=== PATIENT | male | born 1980 | race Caucasian/White ===

== ENCOUNTER 2019-12-03 13:23 | Outpatient (CLI) | payer OTHER, SELFPAY ==
--- NOTE | ~2019-12-03 | CT_ITS ---
EXAMINATION: CT chest high resolution wo nh DATE: 12/03/2019 15:42 INDICATION: Interstitial lung disease. TECHNIQUE: Computed tomography (CT) of the chest was performed without intravenous contrast. The dose -length product was 409.98 mGy-cm. Automated exposure control and iterative reconstruction technique were employed. COMPARISON: Chest dated 12 08/12/2014 FINDINGS: There are calcified pleural plaques on the right, consistent with chronic asbestos exposure . Mildly enlarged AP window lymph node measures 1 cm short axis. No significant pleural or pericardia l effusion. There is extensive bronchiectasis of the lower lobes. There are there are mild interstiti al changes peripherally in the upper lobes. There is bibasilar atelectasis/scarring. No endobronchial lesions. No acute osseous abnormality. IMPRESSION: 1. Severe bilateral lower lobe bronchiectasis. 2: Mild peripheral interstitial changes, possibly chronic interstitial fibrosis. 3: Mildly enlarged mediastinal lymph node, likely reactive. 4: Calcified right pleural plaques, likely from previous asbestos exposure. Reviewed, dictated and finalized at location A. HER EXAMINER IMPRESSION: 1. Severe bilateral lower lobe bronchiectasis. 2: Mild peripheral interstitial changes, possibly chronic interstitial fibrosis . 3: Mildly enlarged mediastinal lymph node, likely reactive. 4: Calcified right pleural plaques, likely from previous asbestos exposure.
--- NOTE | 2019-12-06 22:47 | WPDPFTINT ---
PFT Interpretation PFT Interpretation: DOS: 12/03/2019 REQUESTING: Dr. Mendez REASON FOR TESTING: shortness of breath PULMONARY FUNCTION TESTS Spirometry: FEV1 73%, FVC 67% mildly decreased. FEV1% is normal 82%. There is a 12% increase in FEV1 with bronchodilator. The small airways flows are reduced at 78%. Lung volumes: Mild restriction with decreased TLC 69% predicted. No air trapping. Mild increase in airway resistance Raw 169%. Diffusion: DLCO is 56%, moderately reduced. Flow volume loop: Small overall size with loss of peak at 1 second. IMPRESSION: Mild restriction with a moderate diffusion impairment. This pattern can be seen in interstitial lung disease and pneumonitis. With the decreased small airways pattern, sarcoid may be a consideration as this can produce a restrictive pattern with low DLCO and decreased small airways flows. Heart failure, asbestosis and miliary tuberculosis may also produce this pattern. Clinical correlation is advised. . Heaven Mendez MD
== END 2019-12-03 13:24 | disposition home or self-care (01) ==
LOC: ANHPFT 13:26
PROVIDERS: PCP Internal Medicine; Visit Provider Internal Medicine Critical Care Medicine
DX: J84.10 Pulmonary fibrosis, unspecified (principal); R06.02 Shortness of breath; J84.89 Other specified interstitial pulmonary diseases; J47.9 Bronchiectasis, uncomplicated; R59.0 Localized enlarged lymph nodes; Z77.090 Contact with and (suspected) exposure to asbestos; R91.8 Other nonspecific abnormal finding of lung field
CPT/HCPCS: 71250; 94060; 94726; 94729

== ENCOUNTER 2020-04-02 08:46 | Outpatient (CLI) | payer OTHER, SELFPAY ==
--- NOTE | ~2020-04-02 | MR_ITS ---
EXAMINATION: MR lumbar spine wo con DATE: 04/02/2020 10:42 INDICATION: Low back pain radiating down the right leg. TECHNIQUE: Magnetic resonance imaging (MRI) of the lumbar spine was performed without intravenous con trast. Sequences included sagittal T2-weighted FSE, sagittal T2-weighted FS FSE, sagittal T1-weighted FSE, and axial T2-weighted FSE. COMPARISON: Lumbar spine MRI 11/19/2018 FINDINGS: There is 4 mm retrolisthesis of L5 on S1. Vertebral body heights are normal. There is mildl y decreased disc height at L4-L5. The distal spinal cord signal intensity is normal. The conus medull brandin is at L1. The following disc levels are specifically discussed: L1-L2: The disc does not extend beyond the endplate margin. There is mild left facet joint osteoarthr itis. There is no neural foraminal stenosis. There is no central canal stenosis. L2-L3: The disc does not extend beyond the endplate margin. There is moderate bilateral facet joint o steoarthritis. There is no neural foraminal stenosis. There is no central canal stenosis. L3-L4: There is a left foraminal protrusion. There is mild bilateral facet joint osteoarthritis. Ther e is mild left neural foraminal stenosis. There is no central canal stenosis. L4-L5: There is a right central extrusion. There is moderate bilateral facet joint osteoarthritis. Th ere is mild bilateral neural foraminal stenosis. There is mild central canal stenosis. L5-S1: The disc is bulging and has an annular fissure. There is moderate bilateral facet joint osteoa rthritis. There is mild bilateral neural foraminal stenosis. There is mild central canal stenosis. IMPRESSION: 1. Mild lumbar spondylosis with worsened extrusion at L4-L5. Reviewed, dictated and finalized at location A.
== END 2020-04-02 08:47 | disposition home or self-care (01) ==
LOC: CHSIMG 08:48
PROVIDERS: PCP Internal Medicine; Visit Provider Internal Medicine
DX: M54.16 Radiculopathy, lumbar region (principal)
CPT/HCPCS: 72148

== ENCOUNTER 2020-06-27 10:15 | Outpatient (CLI) | payer OTHER, SELFPAY ==
--- NOTE | ~2020-06-27 | XR_ITS ---
EXAMINATION: XR chest 2V EXAM DATE: 06/27/2020 10:32 INDICATION: Shortness of breath. TECHNIQUE: Frontal and lateral projections of the chest obtained and reviewed. Comparison is made to prior examination from 08/12/2014. FINDINGS: Small amount of linear by basilar scarring or atelectasis. The lungs are otherwise clear. There are no pleural effusions. The cardiomediastinal silhouette is within normal limits. There is no pneumothorax suspected. The bones and soft tissues are unremarkable. IMPRESSION: No acute cardiopulmonary findings. Reviewed, dictated and finalized at location A.
--- NOTE | ~2020-06-27 | NM_ITS ---
EXAMINATION: NM pulmonary perfusion DATE: 06/27/2020 11:01 INDICATION: Shortness of breath TECHNIQUE: 5.5 mCi Tc-99m MAA was administered IV. Scintigraphic images of the chest were obtained. COMPARISON: Chest radiograph dated 06/27/2020 FINDINGS: Small perfusion defects at the basilar right middle lobe and lateral basilar segment of the left lowe r lobe with corresponding mild streaky atelectasis at the lung bases on the prior radiograph. No othe r perfusion defects identified. IMPRESSION: 1. Low probability for pulmonary embolism. Reviewed, dictated and finalized at location A.
== END 2020-06-27 10:16 | disposition home or self-care (01) ==
LOC: ANHIMG 10:19
PROVIDERS: PCP Internal Medicine; Visit Provider Internal Medicine Critical Care Medicine
DX: R06.02 Shortness of breath (principal)
CPT/HCPCS: 71046; 78580; A9540

== ENCOUNTER 2020-10-05 07:40 | Outpatient (CLI) | payer OTHER, SELFPAY ==
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
== END 2020-10-05 07:41 | disposition home or self-care (01) ==
LOC: CHSIMG 07:43
PROVIDERS: PCP Internal Medicine
DX: M54.16 Radiculopathy, lumbar region (principal)
CPT/HCPCS: 72148

== ENCOUNTER 2021-07-24 10:39 | Outpatient (CLI) | payer OTHER, SELFPAY ==
--- NOTE | 2021-07-24 12:39 | WPDSIXMINUTE ---
Six Minute Walk Procedure Procedure Performed Pulmonary Stress Test (6 min walk) Six Minute Walk This is a 6 minute walk test. The test was performed and interpreted in accordance with the 2014 ERS/ATS task force guidelines. Findings: The patient's resting room air oxygen saturation measured by pulse oximetry was 97% and her heart rate was 80 bpm. Patient ambulated for 396 meters and oxygen saturation remained 94 to 98%. Heart rate at the end of the study was 103 bpm. The patient did not qualify for supplemental oxygen at rest or with ambulation. There are no prior studies for comparison.
--- NOTE | 2021-07-24 12:40 | WPDPFTINT ---
PFT Procedure Performed PFT Procedure Performed Spirometry with Pre/Post Bronchodilator Plethysmography (Lung Vol) Diffusing Cap (DLCO) Flow Vol Loop PFT Interpretation This is a pulmonary function test with pre and post-bronchodilator spirometry, plethysmography and diffusing capacity. The test was performed and results interpreted in accordance with the 2019 and 2005 ATS/ERS Task Force guidelines respectively using the Global Lung Function Initiative-2012 reference equations. Patient demonstrated good effort and cooperation. Reproducibility criteria were met. The quality of the pre bronchodilator spirometry maneuver was Grade A and post bronchodilator spirometry maneuver was Grade A. Findings: Spirometry:The contour of the inspiratory and expiratory flow tracing are normal. The pre bronchodilator FVC is 3.78 L, 67% predicted. The pre bronchodilator FEV1 is 3.12 L, 69% predicted. The FEV1: FVC ratio is 83%. The post bronchodilator FVC is 3.86 L, representing a 2% increase. The post bronchodilator FEV1 is 3.30 L, representing a 6% increase. Plethysmography: The total lung capacity is 4.90 L, 67% predicted. The functional residual capacity is 1.76 L, 48% predicted. The residual volume is 1.08 L, 56% predicted. Diffusing capacity: The absolute diffusion capacity is 21.1, 62% predicted. The diffusing capacity corrected for alveolar volume is 4.34, 91% predicted. Impression: There is a moderately restrictive ventilatory abnormality. The spirometry is normal without evidence of an obstructive abnormality. There is no significant improvement after inhaling a single dose of albuterol. The absolute diffusing capacity is mildly decreased and normalizes when corrected for alveolar volume. There are no prior studies for comparison
== END 2021-07-24 10:40 | disposition home or self-care (01) ==
PROVIDERS: PCP Internal Medicine; Visit Provider Nurse Practitioner Family
DX: R06.09 Other forms of dyspnea (principal); J47.9 Bronchiectasis, uncomplicated; J84.10 Pulmonary fibrosis, unspecified; J84.89 Other specified interstitial pulmonary diseases
CPT/HCPCS: 94060; 94618; 94726; 94729

== ENCOUNTER 2022-12-24 10:06 | Outpatient (CLI) | payer OTHER, SELFPAY ==
--- NOTE | 2022-12-24 18:43 | WPDPFTINT ---
PFT Procedure Performed PFT Procedure Performed Plethysmography (Lung Vol) Diffusing Cap (DLCO) Flow Vol Loop Spirometry w/o Bronchodil PFT Interpretation DATE OF SERVICE: 12/24/2022 REQUESTING: Celena Roberto PA-C REASON FOR TESTING: Bronchiectasis Results are reliable and reproducible. Spirometry: The pre-bronchodilator FVC is 4.13 L, 79% predicted.? The pre bronchodilator FEV1 is 3.35 L, 80% predicted.? The FEV1: FVC ratio is 81%.? No bronchodilator was administered. ? Plethysmography:? The total lung capacity is 5.50 L, 79% predicted. The residual volume is 1.37 L, 74% predicted.? Diffusing capacity: The absolute diffusion capacity is 22.4, 68% predicted.? The diffusing capacity corrected for alveolar volume is 3.92, 81% predicted. Impression: There is resolution of the mild restrictive ventilatory abnormality seen on the prior PFT 07/24/2021. The spirometry is normal without evidence of an obstructive abnormality. There is no significant improvement after inhaling a single dose of albuterol. The absolute diffusing capacity is mildly decreased and normalizes when corrected for alveolar volume. Lack of response to bronchodilator should not preclude use if clinically indicated. Compared to the PFT on 07/24/2021, FVC was 67%, now 79%, normal. FEV1 was 69%, mildly reduced now this is 80%, normal. Total lung capacity was 67% now 79%, normalized. DLCO was approximately the same, previously 62% now 68% and normalizes to 81%. Heaven Mendez MD
--- NOTE | 2022-12-25 20:34 | WPDPFTINT ---
PFT Interpretation THIS IS A REPEAT INTERPRETATION. THE INITIAL STUDY DID NOT HAVE THE BRONCHODILATOR DATA AVAILABLE. PLEASE DISREGARD ANY PRIOR REPORT. DATE OF SERVICE: 12/24/2022 REQUESTING: Celena Roberto PA-C REASON FOR TESTING: Bronchiectasis Results are reliable and reproducible. Spirometry: The pre-bronchodilator FVC is 4.13 L, 79% predicted, mildly decreased.? The pre bronchodilator FEV1 is 3.35 L, 80% predicted, normal.? The FEV1: FVC ratio is 81%, normal.? ?After bronchodilator, FEV1 is 3.40, 1% increase. The FVC is 3.98 L, 76% predicted, a 4% decrease. These are non statistically significant changes. Plethysmography:? The total lung capacity is 5.50 L, 79% predicted, in the normal range. The residual volume is 1.37 L, 74% predicted, normal range. RV/TLC 25%, normal.? Diffusing capacity: The absolute diffusion capacity is 22.4, 68% predicted, mildly decreased.? The diffusing capacity corrected for alveolar volume is 3.92, 81% predicted, normal. Impression: There is resolution of the mild restrictive ventilatory abnormality seen on the prior PFT 07/24/2021. The spirometry is normal without evidence of an obstructive abnormality. There is no significant improvement after inhaling a single dose of albuterol. The absolute diffusing capacity is mildly decreased and normalizes when corrected for alveolar volume. Lack of response to bronchodilator should not preclude use if clinically indicated. Compared to the PFT on 07/24/2021, FVC was 67%, now 79%, normal. FEV1 was 69%, mildly reduced now this is 80%, normal. Total lung capacity was 67% now 79%, normalized. DLCO was approximately the same, previously 62% now 68% and normalizes to 81%. Heaven Mendez MD
== END 2022-12-24 10:07 | disposition home or self-care (01) ==
PROVIDERS: PCP Internal Medicine; Visit Provider Physician Assistant
DX: J84.89 Other specified interstitial pulmonary diseases (principal); J47.9 Bronchiectasis, uncomplicated
CPT/HCPCS: 94060; 94726; 94729

== ENCOUNTER 2023-08-02 01:01 | Day surgery (SDC) | payer OTHER, SELFPAY ==
[2023-07-26 11:33] VITALS: BMI 35.9
[2023-08-02 09:31] VITALS: BP 136/89; PULSE 63; RESP 18; TEMP 36.1; O2SAT 100; BMI 36.1
[2023-08-02] MEDS: LACTATED RINGERS 1,000 ML 150 ML IV CONT (09:41)
--- NOTE | 2023-08-02 10:03 | WPDANESEPPF ---
Anes - Initial Pre Proc Eval Procedure: Operation Date: 08/02/23 10:45 Proposed Procedures p Esophagogastroduodenoscopy - Christo Carvajal MD Date/Time: 08/02/23 10:03 Surgeon: Christo Carvajal MD Pre Op Diagnosis: GERD without esophagitis, dysphagia unspecified Patient Data Age: 42 Gender: M Height: 1.83 m Weight: 121 kg Last Vital Signs Temp 97.0 F L 08/02/23 09:31 Pulse 63 08/02/23 09:31 Resp 18 08/02/23 09:31 BP 136/89 08/02/23 09:31 Pulse Ox 100 08/02/23 09:31 O2 Del Method Room Air 08/02/23 09:31 Allergies Allergy/AdvReac Type Severity Reaction Status Date / Time No Known Allergies Allergy Verified 08/02/23 09:30 Home Medications Medication Instructions Recorded Confirmed Type clonidine HCl 0.1 mg tablet 0.1 mg PO DAILY 11/27/19 08/02/23 History escitalopram oxalate 20 mg tablet 20 mg PO DAILY 11/27/19 08/02/23 History hydroxyzine HCl 25 mg tablet 25 mg PO BID PRN Anxiety 11/27/19 08/02/23 History verapamil 120 mg tablet 120 mg PO DAILY 11/27/19 08/02/23 History duloxetine 60 mg capsule,delayed 60 mg PO DAILY 05/02/20 08/02/23 History release doxycycline hyclate 50 mg tablet 50 mg PO BID 06/26/21 08/02/23 History omeprazole 40 mg capsule,delayed 40 mg PO BID #60 caps 07/09/23 08/02/23 Rx release Adults Multivitamin 1 tab-cap PO DAILY 07/26/23 08/02/23 History aripiprazole 5 mg tablet 5 mg PO DAILY 07/26/23 08/02/23 History duloxetine 30 mg capsule,delayed 30 mg PO DAILY 07/26/23 08/02/23 History release Patient hx anesthesia problems: none Family hx anesthesia problems: none Results Review: All pre-operative results and documents have been reviewed as part of the pre-operative evaluation. [facility] Past Medical History Medical History (Updated 07/09/23 @ 10:35 by Juliann Downey, REE) Anxiety Asthma Colon cancer screening Depression Dysphagia GERD (gastroesophageal reflux disease) NSIP (nonspecific interstitial pneumonia) Pulmonary fibrosis Surgical History Surgical History History of lung biopsy Social History Social History Smoking status: Never smoker Alcohol intake: current Substance use: never Substance use type: does not use Living arrangements: with family Occupation/Education: unemployed Additional occupation/education comments: pandemic; not working Spiritual care concerns: No Anes - Eval Final PreProcedure Day of Procedure 08/02/23 10:03 Patient weight: obese Heart: regular rate and rhythm Lungs: clear to auscultation Airway: Mallampati scale class II Neurological: alert and oriented Last oral intake: >/= 8 hours ASA classification: III Emergent: no Anesthetic plan: proceed Anesthesia type and monitoring: general GIVS and standard monitoring Results Review: All pre-operative results and documents have been reviewed as part of the pre-operative evaluation. Informed Consent: The patient's anesthetic plan and its attendant risks and benefits were discussed with the patient/family/POA. Questions were solicited and answers provided to the satisfaction of the patient/family/POA.
--- NOTE | 2023-08-02 10:19 | WPDHPUPDATE1 ---
History and Physical Update Update Date/Time: 08/02/23 10:19 History and Physical has been reviewed, including an updated exam of the patient. There are NO changes in the patient's condition. Risks, benefits, and alternatives have been discussed and questions answered. Patient agrees to proceed with procedure.
[2023-08-02] MEDS: BENZOCAINE (*SP) 60 ML SPRAY CAN (HURRICAINE) 1 SPRAY MUCOUS MEM (10:23)
[2023-08-02 10:33] VITALS: BP 128/86; PULSE 60; RESP 18; O2SAT 99
[2023-08-02 10:43] VITALS: BP 127/88; PULSE 68; RESP 18; O2SAT 98
== END 2023-08-02 11:03 | disposition home or self-care (01) ==
PROVIDERS: PCP Internal Medicine; Visit Provider Internal Medicine Gastroenterology
PROC: 0DJ08ZZ Inspection of Upper Intestinal Tract, Via Natural or Artificial Opening Endoscopic (ICD-10-PCS; CPT 43235; principal; 2023-08-02 10:45)
DX: K21.9 Gastro-esophageal reflux disease without esophagitis (principal); K44.9 Diaphragmatic hernia without obstruction or gangrene; K29.70 Gastritis, unspecified, without bleeding; F41.9 Anxiety disorder, unspecified; J45.909 Unspecified asthma, uncomplicated; F32.A Depression, unspecified; J84.10 Pulmonary fibrosis, unspecified; E66.9 Obesity, unspecified; Z68.36 Body mass index [BMI] 36.0-36.9, adult
CPT/HCPCS: 43239; 88305; J2704; J7120

== ENCOUNTER 2023-12-30 12:41 | Outpatient (CLI) | payer OTHER, SELFPAY ==
--- NOTE | 2023-12-30 16:38 | WPDSIXMINUTE ---
Six Minute Walk Procedure Procedure Performed Pulmonary Stress Test (6 min walk) Six Minute Walk Six Minute Walk: This is a 6 minute walk test. The test was performed and interpreted in accordance with the 2014 ERS/ATS task force guidelines. Findings: The patient's resting room air oxygen saturation measured by pulse oximetry was 95% and heart rate was 73 bpm. Patient ambulated for 305 meters and oxygen saturation remained 94 to 96%. Heart rate at the end of the study was 96 bpm. The patient did not qualify for supplemental oxygen at rest or with ambulation. In comparison to 6 minute walk on 07/24/2021 ambulatory distance decreased from 396 m to 305 m. Dwaine saturation on room air remains at 94%.
--- NOTE | 2023-12-30 16:43 | WPDPFTINT ---
PFT Procedure Performed PFT Procedure Performed Spirometry with Pre/Post Bronchodilator Plethysmography (Lung Vol) Diffusing Cap (DLCO) Flow Vol Loop PFT Interpretation This is a pulmonary function test with pre and post-bronchodilator spirometry, plethysmography and diffusing capacity. The test was performed and results interpreted in accordance with the 2019 and 2005 ATS/ERS Task Force guidelines respectively using the Global Lung Function Initiative-2012 reference equations. Patient demonstrated good effort and cooperation. Reproducibility criteria were met. The quality of the pre bronchodilator spirometry maneuver was Grade A and post bronchodilator spirometry maneuver was Grade B. Findings: Spirometry: the contour the inspiratory and expiratory flow tracing are normal. The pre bronchodilator FVC is 3.90 L, 73% predicted. The pre bronchodilator FEV1 is 3.21 L, 75% predicted. The pre bronchodilator FEV1: FVC ratio was 82%. The post bronchodilator FVC is 3.85 L, representing 1% decrease. The post bronchodilator FEV1 is 3.25 L, representing 1% increase. The post bronchodilator FEV1: FVC ratio was 84%. Plethysmography: The total lung capacity is 4.71 L, 66% predicted. The functional residual capacity is 1.73 L, 48% predicted. The residual volume is 0.81 L, 42% predicted. Diffusing capacity: The diffusing capacity unadjusted for hemoglobin and carboxyhemoglobin is 20.6, 62% predicted. The diffusing capacity adjusted for alveolar volume is 4.21, 89% predicted. In comparison to the most recent pulmonary function testing on 12/24/2022 the post bronchodilator FVC is unchanged from 3.98 L to 3.85 L. The post bronchodilator FEV1 is unchanged from 3.40 L to 3.25 L. The total lung capacity is decreased from 5.50 L to 4.71 L. The functional residual capacity is decreased from 2.28 L to 1.73 L. The residual volume is decreased from 1.37 L to 0.81 L. The diffusing capacity unadjusted for hemoglobin and carboxyhemoglobin is unchanged from 22.4 to 20.6. The diffusing capacity unadjusted for hemoglobin and carboxyhemoglobin is unchanged from 3.91 to 4.21. Impression: There is a mild restrictive ventilatory abnormality. The spirometry is normal without evidence of an obstructive abnormality. There is no significant improvement after inhaling a single dose of albuterol. The diffusing capacity unadjusted for hemoglobin and carboxyhemoglobin is mildly decreased and normalizes when adjusted for alveolar volume. In comparison to the most recent pulmonary function testing on 12/24/2022 there has been a greater than anticipated time dependent decrease in the total lung capacity, functional residual capacity and residual volume with no significant change in the FVC, FEV1 or diffusing capacity. Clinical correlation is recommended.
== END 2023-12-30 12:42 | disposition home or self-care (01) ==
LOC: ANHPFT 12:42
PROVIDERS: PCP Internal Medicine; Visit Provider Internal Medicine Critical Care Medicine
DX: J84.89 Other specified interstitial pulmonary diseases (principal); R94.2 Abnormal results of pulmonary function studies
CPT/HCPCS: 94060; 94618; 94726; 94729

== ENCOUNTER 2024-02-10 08:05 | Outpatient (CLI) | payer OTHER, SELFPAY ==
--- NOTE | ~2024-02-10 | US_ITS ---
Limited Abdominal Sonogram: Real-time sonographic imaging of the right upper quadrant was performed. Clinical History: Abnormal LFTs Findings: The liver appears normal with no evidence of mass lesion or bile duct dilatation. Main por tha vein demonstrates normal direction of flow. The gallbladder is well distended, and appears normal with no evidence of gallstone or wall thickening. The common bile duct measures 3 mm. The visualize d pancreas, aorta, and IVC are unremarkable. Impression: No significant abnormality seen. Reviewed, dictated and finalized at location . Impression: No significant abnormality seen.
== END 2024-02-10 08:06 | disposition home or self-care (01) ==
LOC: CHSIMG 08:06
PROVIDERS: PCP Internal Medicine; Visit Provider Internal Medicine
DX: R94.5 Abnormal results of liver function studies (principal)
CPT/HCPCS: 76705

== ENCOUNTER 2024-02-24 11:02 | Outpatient (RCR) | payer OTHER, SELFPAY ==
--- NOTE | 2024-02-24 11:54 | PTOPEVAL1 ---
Assessment and note entered by Narinder Davis Evaluation Information Assessment Status Evaluation Diagnosis neck pain, left shoulder pain Onset 10/01/23 Subjective Information Pt. reports that he has had pain in the left shoulder since at least September. He reports having a long hx of migraines and neck pain. He states that the shoulder pain is constant and describes the pain in the area of the left upper trap. He reports he has attempted chiropractic, with no relief. He reports that nothing particular increases his pain and he notices a constant tightness in the shoulder. He reports that pain does not affect sleep, unless he experiences a migraine. He reports migraines occur 3-4x/month. He reports that his work has him at a computer often. He reports that his goal is to decrease his left shoulder pain. Reported Pain Level Pain Score 5: Self Report Assessment PT Clinical Summary Pt. is a 43 year old male who enters the clinic with a diagnosis of left shoulder and neck pain. Pt. presents with indication of left cervical nerve root impingement. He presents with impaired postural awareness, impaired cervical mobility, impaired u.e. strength and pain. Continued treatment is indicated in order to improve these areas to allow the pt. to be able to complete ADL' s and IADL's with improved comfort. Plan of Care Interventions Electrical Stimulation,Gait Training,Manual Therapy,Mechanical Traction,Neuro Re-education, Patient/Caregiver Educati,Therapeutic Activities, Therapeutic Exercise PT Services Indicated Yes Treatment Frequency and 2x/week x 10 visits Duration These treatments will address the objective and functional deficits as defined above. The patient will be advanced safely and appropriately in order for the patient to progress towards his/her prior level of function. Additional exercises will be introduced and as well as a comprehensive home exercise program upon discharge, if needed, ?to ensure carryover of functional gains achieved in the clinic. This treatment plan has been reviewed and agreement upon by the patient.
--- NOTE | 2024-02-24 11:54 | OPREHPOC ---
Outpatient Therapy Plan of Care This is a Multidisciplinary Plan of Care that may contain components documented by all disciplines (PT, OT, and ST.) PT Problem 1 PT Problem #1 Knowledge Deficit PT Goal 1 Goal Independent with a HEP addressing posture and strength Target Visit 2 PT Problem 2 PT Problem #2 Pain PT Goal 1 Goal Reduce pain to 2/10 at worst with all work related activities. Target Visit 10 PT Problem 3 PT Problem #3 Impaired Functional Mobil PT Goal 1 Goal Present with less than 20% limitation with the NDI . Demonstrate improve postural awareness with improved scapular positioning upon visual assessment in standing. Target Visit 10 PT Problem 4 PT Problem #4 Impaired Strength PT Goal 1 Goal Pt. will demonstrate 5/5 proximal u.e. strength. Target Visit 10
--- NOTE | 2024-03-26 14:46 | PCPTNOTE ---
Patient cancelled session today. Reports he cannot make it in.
--- NOTE | 2024-04-01 13:27 | PCPTNOTE ---
The pt. did not show for his scheduled appointment on 04/01/24. He failed to contact the clinic. Narinder Davis, MPT
--- NOTE | 2024-04-14 17:17 | OPREHPOC ---
Outpatient Therapy Plan of Care This is a Multidisciplinary Plan of Care that may contain components documented by all disciplines (PT, OT, and ST.) PT Problem 1 PT Problem #1 Knowledge Deficit PT Goal 1 Goal Independent with a HEP addressing posture and strength Target Visit 2 Progress Met PT Problem 2 PT Problem #2 Pain PT Goal 1 Goal Reduce pain to 2/10 at worst with all work related activities. Target Visit 10 Progress Not Met PT Problem 3 PT Problem #3 Impaired Functional Mobil PT Goal 1 Goal Present with less than 20% limitation with the NDI . Demonstrate improve postural awareness with improved scapular positioning upon visual assessment in standing. Target Visit 10 Progress Met PT Problem 4 PT Problem #4 Impaired Strength PT Goal 1 Goal Pt. will demonstrate 5/5 proximal u.e. strength. Target Visit 10 Progress Met
--- NOTE | 2024-04-14 17:17 | PTOPDC ---
Assessment and note entered by Nuha Cleaning, PT Evaluation Information Assessment Status Discharge Diagnosis neck and left shoulder pain Onset 10/01/23 Subjective Information Ronnie Melissa reports his neck is sore and he has a headache like usual. He is noting overall his symptoms are better with less pain and less frequent pain. He also notes his left shoulder feels more loose now too. He has a follow up with his MD on 04/24/24. Reported Pain Level Pain Score 4: Self Report Assessment PT Clinical Summary Ronnie Melissa has completed 10 skilled PT visits for neck and left shoulder pain. He is reporting less tightness around the left shoulder, less intense pain, and elss frequent pain. He does still get pain and headaches but is able to decrease symptoms with performance of stretches learned in PT. He objectively demonstrates improved cervical AROM, improved shoulder strength , less tenderness, and improved functional abilities. He will be discharged to his home exercise program. Plan of Care PT Services Indicated No
== END 2024-04-14 20:00 | disposition home or self-care (01) ==
LOC: CHSPT 11:02
PROVIDERS: PCP Internal Medicine; Visit Provider Internal Medicine
DX: M54.2 Cervicalgia (principal); M25.512 Pain in left shoulder
CPT/HCPCS: 97014; 97110; 97140; 97161; G0283

== ENCOUNTER 2025-09-13 13:23 | Outpatient (CLI) | payer OTHER, SELFPAY ==
--- OUTSIDE RECORDS SUMMARY | 2025-09-13 13:39 | XMS_ITS | Clinical Summary ---
Author Organization [facility] Address [address] [place] [address] Care Team Providers Care Mortgage Processing Clerk Name Role Phone Ronn Ariza MD Primary Care Provider [phone] Allergies No known active allergies Medications busPIRone (BUSPAR) 15 mg tablet 11/21/2020 Active cloNIDine (CATAPRES) 0.1 mg tablet 11/07/[address] (CYMBALTA) 60 mg capsule 11/07/2020 Active escitalopram (LEXAPRO) 20 mg tablet 11/21/2020 Active hydrOXYzine (ATARAX) 25 mg tablet 11/07/2020 Active omeprazole (PriLOSEC) 40 mg capsule 11/24/2020 Active verapamil ER (VERELAN) 120 mg 24 hr capsule 07/08/2020 Activ e buPROPion SR (WELLBUTRIN SR) 100 mg 12 hr tablet 02/16/[address] (ACIPHEX) 20 mg EC tablet Take 1 tablet (20 mg total) by mouth daily Active Active Problems Problem Noted Date Diagnosed Date Lumbar strain, initial encounter 12/12/2020 Lumbar spondylosis 12/12/2020 Immunizations Immunization Administration Dates Next Due Pfizer SARS-CoV-2 Monovalent Vaccination (12+ Yrs) AYERS-READY TO USE 06/05/2022 Surgical History Surgery Date Site/Laterality Comments LUNG BIOPSY 11/04/2013 - 11/03/2014 Medical History Medical History Date Comments Interstitial pneumonitis (HCC) GERD (gastroesophageal reflux disease) Dysphagia Family History Medical History Relation Name Comments No Known Problems Father No Known Problems Mother Relation Name Status Comments Father Mother Social History Tobacco Use Types Packs/Day Years Used Date Smoking Tobacco: Never Smokeless Tobacco: Never Tobacco Cessation:Counseling Given: Not Answered Personal Safety Answer Date Recorded Have you ever been in or are you currently in a harmful physical or emotional relationship or is someone making you feel afraid or unsafe? Denies 09/16/2023 Sex and Gender Information Value Date Recorded Sex Assigned at Not on file Legal Sex Male 1:58 PM RADIOTELEGRAPHER Gender Identity Male 02/06/2024 5:00 PM CDT Sexual Orientation Straight 02/06/2024 5: 00 PM CDT Last Filed Vital Signs Vital Sign Reading Time Taken Comments Blood Pressure 141/86 09/16/2023 9:55 AM RADIOTELEGRAPHER Pulse 70 09/16/2023 9:55 AM RADIOTELEGRAPHER Temperature 36.6 C (97.8 F) 11/30/2020 8:47 AM RADIOTELEGRAPHER Respiratory Rate - - Oxygen Saturation - - Inhaled Oxygen Concentration - - Weight 116.6 kg (257 lb) 11/30/2020 8:47 AM RADIOTELEGRAPHER Height 182.9 cm (6') 11/30/2020 8:47 AM RADIOTELEGRAPHER Body Mass Index 34.86 11/30/2020 8:47 AM RADIOTELEGRAPHER Plan of Treatment Health Maintenance Due Date Last Done Comments Depression Screening 1981 Hepatitis C Screening 1981 Varicella Vaccines (1 of 2 - 13+ 2-dose series) 1994 DTaP/Tdap/Td Vaccine (6 - Tdap) 05/14/1996 05/13/1996, 05/17/1986, 02/23/1983, Additional history exists Hepatitis B Screening 1999 Regular Well Visit/Exam 18-64 1999 HPV Vaccines (1 - 3-dose SCDM series) 2008 Covid-19 Vaccine ( season) 2025 06/05/2022, 10/30/2021, 02/03/2021, Additional history exists Influenza Vaccine (#1) 2025 , 07/27/2020, 07/22/2019, Additional history exists Pneumococcal vaccine <65 Aged Out 06/04/2014 No longer eligible based on patient's age to complete this topic Insurance [facility] Care Teams Mortgage Processing Clerk Relationship Specialty Start Date End Date Ronn Ariza MD PCP - General Internal Medicine 10/18/20
--- OUTSIDE RECORDS SUMMARY | 2025-09-13 13:39 | XMS_ITS | Encounter Summary ---
Author Organization [facility] Address [address] [place] [address] Care Team Providers Care Joint Cleaning Machine Operator Name Role Phone Ronn Ariza MD Primary Care Provider [phone] Encounter Details Date Type Department Care Team (Late st Contact Info) Description 07/12/2025 Telephone [facility] - Centralized Scheduling [address] [place] [address] Terra Cervantes MD [address] [facility] 3 [place] [phone] Social History Tobacco Use Types Packs/Day Years Used Date Smoking Tobacco: Never Smokeless Tobacco: Never Alcohol Use Standard Drinks/Week Comments Not Currently 0 (1 standard drink = 0.6 oz pur e alcohol) PHQ-2 Answer Date Recorded Patient Health Questionnaire-2 Score 0 07/07/2025 Sex and Gender Information Value Date Recorded Sex Assigned at Not on file Legal Sex Male 1:49 PM CDT Gender Identity Not on file Sexual Orientation Not on file documented as of this encounter Miscellaneous Notes * Telephone Encounter - Dario Molina LPN - 07/16/2025 3:37 PM CDT This nurse spoke with Julienne @ [facility] the associate reports the order that was sent was for once daily and needs to be changed to twice daily for the insurance. Dario Molina LPN * Telephone Encounter - Terra Cervantes MD - 07/14/2025 6:12 PM CDT MAs Let pharmacy know I changed quantity then to 60 ml (was ordered as 75ml before) Thank you. * Telephone Encounter - Vikki Rodriguez - 07/12/2025 9:54 AM CDT Clindamycin Phosphate (Clindamycin Phos, Once-Daily,) 1 % GEL. Insurance requires a P.A if he gets the once daily gel but insurance will cover 60g in 30 days for 2xs daily documented in this encounter Plan of Treatment Upcoming Encounters Date Type Department Care Team (Late st Contact Info) Description 12/22/2025 9:30 AM PICKER OPERATOR Office Visit [facility] - Dermatology [address] [place] [address], [place] [address] Terra Cervantes MD [address] [place] [address] [address] [place] [address] documented as of this encounter Visit Diagnoses Not on filedocumented in this encounter Care Teams Joint Cleaning Machine Operator Relationship Specialty Start Date End Date Ronn Ariza MD [address] [place] [address] PCP - General 01/19/19 documented as of this encounter
--- OUTSIDE RECORDS SUMMARY | 2025-09-13 13:39 | XMS_ITS | Encounter Summary ---
Author Organization [facility] Address [address] [place] [address] Care Team Providers Care Corrosion Control Fitter Name Role Phone Ronn Ariza MD Primary Care Provider [phone] Reason for Visit * Reason Onset Date Comments MEDICATION REFILL 05/16/2022 Encounter Details Date Type Department Care Team (Late st Contact Info) Description 05/16/2022 Refill [facility] [address] [place] [address], [facility] [place] [phone] Terra Cervantes MD [address] [place] [address] [address] [place] [address] MEDICATION REFILL Social History Tobacco Use Types Packs/Day Years Used Date Smoking Tobacco: Never Smokeless Tobacco: Never Alcohol Use Standard Drinks/Week Comments Not Currently 0 (1 standard drink = 0.6 oz pur e alcohol) Sex and Gender Information Value Date Recorded Sex Assigned at Not on file Legal Sex Male 1:49 PM CDT Gender Identity Not on file Sexual Orientation Not on file documented as of this encounter Miscellaneous Notes * Telephone Encounter - Beatriz Sandhu - 05/17/2022 1:42 PM CDT LV 02/21/22 NV 06/27/22 RTC 4azhs Beatriz Sandhu documented in this encounter Plan of Treatment Upcoming Encounters Date Type Department Care Team (Late Contact Info) Description 12/22/2025 9:30 AM ED SPECIAL EDUCATION TEACHER Office Visit [facility] - Dermatology [address] [facility], [place] [phone] Terra Cervantes MD [address] [place] [address] [address] [place] [phone] documented as of this encounter Visit Diagnoses Diagnosis Other specified follicular disorders documented in this encounter Care Teams Corrosion Control Fitter Relationship Specialty Start Date End Date Ronn Ariza MD [address] [place] [address] PCP - General 01/19/19 documented as of this encounter
--- OUTSIDE RECORDS SUMMARY | 2025-09-13 13:39 | XMS_ITS | Clinical Summary ---
Author Organization [facility] Address [address] [place] [address] Phone Care Team Providers Care Dietetics Professor Name Role Phone Ronn Ariza MD Primary Care Provider [phone] Allergies No known active allergies Medications busPIRone HCl (BUSPAR) 30 MG Tablet Take by mouth 2 times daily. Active escitalopram (LEXAPRO) 20 MG Tablet Take 20 mg by mouth daily. Active diclofenac (VOLTAREN) 75 MG Tablet Delayed Response Take 75 mg by mouth 2 times daily. Active acetaminophen (TYLENOL) 325 MG Tablet Take 325 mg by mouth every 4 hours as needed for Mild or more severe pain. Active tiZANidine (ZANAFLEX) 4 MG Tablet Take 1 Tab by mouth 3 times daily as needed for Muscle spasms. 90 Tab 2 03/16/2019 Active Active Problems Problem Noted Date Diagnosed Date Chronic midline low back pain without sciatica 0 03/16/2019 Migraine without aura and wi thout status migrainosus, not intractable 02/02/2019 Sacroiliac joint dysfunction of right side 12/24 Facet arthropathy 12/16/2018 Acute midline low back pain with bilateral sciat ica 12/16/2018 Cervicalgia 12/16/2018 Social History Tobacco Use Types Packs/Day Years Used Date Smoking Tobacco: Never Assessed Sex and Gender Information Value Date Recorded Sex Assigned at Not on file Legal Sex Male 9:18 PM CDT Gender Identity Not on file Sexual Orientation Not on file Last Filed Vital Signs Vital Sign Reading Time Taken Comments Blood Pressure 130/83 01/07/2020 10:21 AM KENNEL ATTENDANT Pulse 74 01/07/2020 10:21 AM KENNEL ATTENDANT Temperature 36.2 C (97.1 F) 01/07/2020 10:21 AM KENNEL ATTENDANT Respiratory Rate 16 01/07/2020 10:21 AM KENNEL ATTENDANT Oxygen Saturation 100% 01/07/2020 10:21 AM KENNEL ATTENDANT Inhaled Oxygen Concentration - - Weight 108.9 kg (240 lb) 04/20/2019 11:02 AM CDT Height - - Body Mass Index - - Plan of Treatment Health Maintenance Due Date Last Done Comments Hepatitis C Virus (HCV) Screening 1981 TdaP Immunization 1981 Hepatitis B Immunization (1 of 3 - 19+ 3-dose series) 2000 Human Papillomavirus (HPV) Immunization (1 - 3-dose SCDM series) 2008 Influenza Immunization (#1) 07/05/202507/05, 07/28/2018, 07/23/2016, Additional history exists SARS-COV-2 Immunization (2024- season) 2025 10/30/2021, 02/03/2021, 01/06/2021 Respiratory Syncytial Virus (RSV) Immunization (Adult) (1 - 1-dose 75+ series) 2056 DTaP/Tdap/Td Immunization Discontinued 1995, 05/17/1986, 02/23/1983, Additional history exists Meningococcal Immunization (ACWY) Aged Out 05/17/2004 No longer eligible based on patient's age to complete this topic Pneumococcal Immunization Combined Aged Out 06/04/2014 No longer eligible based on patient's age to complete this topic Rotavirus Immunization Aged Out No lo nger eligible based on patient's age to complete this topic Insurance MEDICAID [place] [employer] [place] Care Teams Dietetics Professor Relationship Specialty Start Date End Date Ronn Ariza MD [address] [place] [address] PCP - General Internal Medicine 11/28/18
--- OUTSIDE RECORDS SUMMARY | 2025-09-13 13:39 | XMS_ITS | Encounter Summary ---
Author Organization [facility] Address [address] [place] [address] Care Team Providers Care Tester Wafer Substrate Name Role Phone Ronn Ariza MD Primary Care Provider [phone] Encounter Details Date Type Department Care Team (Late st Contact Info) Description 07/15/2025 Telephone [facility] - Centralized Scheduling [address] [place] [address] Terra Cervantes MD [address] [facility] [address] [place] [phone] Social History Tobacco Use Types Packs/Day Years [...] encounter Miscellaneous Notes * Telephone Encounter - Román Vuong - 07/19/2025 11:29 AM CDT Called pt pharmacy and clarified. * Telephone Encounter - Terra Cervantes MD - 07/16/2025 7:14 PM CDT MAs See other telephone encounter Other note said that pharmacy said it needs to be written as BID to be dispensed. Please call pharmacy to clarify everything because these messages are saying two different things Thank you. * Telephone Encounter - Arslanlibrado Vikki - 07/15/2025 11:22 AM CDT Anastacio is calling about the Clindamycin Phosphate (Clindamycin Phos, Once- Daily,) 1 % GEL. Discription is a one a day application but directions state to apply twice a day and ins will not cover it that way. Can someone either send over a new prescription or call them back. documented in this encounter Plan of Treatment Upcoming Encounters Date Type Department Care Team (Late st Contact Info) Description 12/22/2025 9:30 AM CREEL HAND Office Visit [facility] - Dermatology [address] [place] [address], [place] [address] Terra Cervantes MD [address] [place] [address] [address] [place] [phone] documented as of this encounter Visit Diagnoses Not on filedocumented in this encounter Care Teams Tester Wafer Substrate Relationship Specialty Start Date End Date Ronn Ariza MD [address] [place] [address] PCP - General 01/19/19 documented as of this encounter
--- OUTSIDE RECORDS SUMMARY | 2025-09-13 13:39 | XMS_ITS | Clinical Summary ---
Author Organization [facility] Address [address] [place] [address] Care Team Providers Care Syrup Mixer Assistant Name Role Phone Ronn Ariza MD Primary Care Provider [phone] Source Comments [facility] [facility]non-owned Affiliates and Associated Physician Practices is amultiple site organization consisting of ambulatory clinics and hospital sitesin [place], [place], [place] and [place]. This disclosure is being madepursuant to the Care Everywhere program and may not contain all information available regarding this patient. Last updated 18.[facility] [employer] [facility] Allergies No known active allergies Medications * Be aware that medications may not be up to date on this document. Alwaysverify current medications with the patient. hydrOXYzine hcl (ATARAX) 25 MG tablet 9 Active buPROPion SR 12hr (WELLBUTRIN-SR) 100 MG tablet 9 Active omeprazole (PRILOSEC) 40 MG capsule 9 Active cloNIDine (CATAPRES) 0.1 MG tablet 2 times daily 9 Active DULoxetine (CYMBALTA) 30 MG capsule Take 1 (one) capsule by mouth 2 times daily Active escitalopram (LEXAPRO) 20 MG tablet 0 Active tiZANidine (ZANAFLEX) 4 MG tablet 0 Active busPIRone (BUSPAR) 15 MG tablet 0 Active verapamil SR 24hr (VERELAN) 120 MG capsule 0 Active DULoxetine (CYMBALTA) 60 MG capsule Take 1 (one) capsule by mouth once daily 0 Active famotidine (PEPCID) 40 MG tablet 1 Active doxycycline monohydrate 100 MG capsuleIndicatio ns:Other specified follicular disorders Take 1 (one) capsule by mouth every 12 hours 60 capsule 2 2 Active Additional Information Patient not taking.Reported on 07/07/2025 ARIPiprazole (Abilify) 5 MG tablet Take 1 (one) tablet by mouth once daily Active FLUoxetine (PROzac) 20 MG capsule TAKE 2 CAPSULES BY MOUTH ONCE DAILY IN THE MORNING Active cyclobenzaprine (Flexeril) 5 MG tablet as needed Active propranolol ER 24hr (Inderal LA) 60 MG capsule Take 1 (one) capsule by mouth at bedtime Active phentermine 15 MG capsule Take 1 (one) capsule by mouth daily before breakfast 5 Active topiramate (Topamax) 25 MG tablet Take 1 (one) tablet by mouth 2 times daily 5 Active ketoconazole (Nizoral) 2 % shampooIndicatio ns:Other specified follicular disorders Apply to face leave on for 3 minutes, then rinse; three times weekly. 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 Instructions and side effects discussed. - Start Clindamycin 1% lotion to scalp BID. - Start OTC BP wash to scalp QD. Multiple benign melanocytic nevi of upper extremity, lower extremity, and trunk 12/28/2020 Assessment & Plan (12/28/2020 3:16 PM HELP DESK SUPPORT SPECIALIST): - No atypical or concerning moles on exam today - Reviewed ABCDEs of melanoma - Sun protection reviewed, handout provided - Annual FBSE recommended Lumbar spondylosis 12/12/2020 Lumbar strain, initial encounter 12/12/2020 Chronic midline low back pain without sciatica 0 03/16/2019 Migraine without aura and wi thout status migrainosus, not intractable 02/02/2019 Sacroiliac joint dysfunction of right side 12/24 Acute midline low back pain with bilateral sciat ica 12/16/2018 Cervicalgia 12/16/2018 Facet arthropathy 12/16/2018 Encounters Date Type Department Care Team Description 07/15/2025 Telephone [facility] - Centralized Scheduling [facility] [place] [address] Terra Cervantes MD 07/14/2025 Orders Only [facility] - Dermatology [address] [place] [phone] Terra Cervantes MD Other specified follicular disorders 07/12/2025 Telephone [facility] - Centralized Scheduling [address] [place] [phone] Terra Cervantes MD 07/07/2025 9:00 AM CDT Office Visit [facility] - Dermatology [address] [place] [phone] Terra Cervantes MD Other seborrheic dermatitis (Primary Dx); Other specified follicular disorders 07/07/2025 Travel from Last 3 Months Immunizations Immunization Administration Dates Next Due INFLUENZA VACCINE, QUADR. (F LUZONE; FLULAVAL; FLUARIX; AFLURIA QUADRIVALENT; 6MO+), 0.5 ML (IIV4) 07/27/2020 Family History Medical History Relation Name Comments None Known Brother None Known Father None Known Maternal Aunt None Known Maternal Grandfather None Known Maternal Grandmother None Known Maternal Uncle None Known Mother None Known Other None Known Paternal Aunt None Known Paternal Grandfather None Known Paternal Grandmother None Known Paternal Uncle None Known Sister Asthma Neg Hx CVA Neg Hx Cancer - Breast Neg Hx Cancer - Other Neg Hx Cancer - Skin, Melanoma Neg Hx Cancer - Skin, Non Melanoma Neg Hx Eczema Neg Hx Hemophilia Neg Hx Psoriasis Neg Hx Relation Name Status Comments Brother Father Maternal Aunt Maternal Grandfather Maternal Grandmother Maternal Uncle Mother Other Paternal Aunt Paternal Grandfather Paternal Grandmother Paternal Uncle Sister Social History Tobacco Use Types Packs/Day Years [...] Sign Reading Time Taken Comments Blood Pressure 131/91 10/17/2020 1:49 PM HELP DESK SUPPORT SPECIALIST Pulse 76 10/17/2020 1:49 PM HELP DESK SUPPORT SPECIALIST Temperature 36.1 C (97 F) 10/17/2020 1:49 PM HELP DESK SUPPORT SPECIALIST Respiratory Rate 16 10/17/2020 1:49 PM HELP DESK SUPPORT SPECIALIST Oxygen Saturation 100% 10/17/2020 1:49 PM HELP DESK SUPPORT SPECIALIST Inhaled Oxygen Concentration - - Weight 117.9 kg (260 lb) 02/24/2025 9:16 AM CDT Height 182.9 cm (6') 02/24/2025 9:16 AM CDT Body Mass Index 35.26 02/24/2025 9:16 AM CDT Plan of Treatment Upcoming Encounters Date Type Department Care Team (Late st Contact Info) Description 12/22/2025 9:30 AM HELP DESK SUPPORT SPECIALIST Office Visit [facility] - Dermatology [address] [place] [address], [facility] [place] [phone] Terra Cervantes MD [address] [place] [address] [address] [place] [phone] Health Maintenance Due Date Last Done Comments LIPID TESTING 1981 HIV SCREENING 1996 HEPATITIS C SCREENING 08/16/1999 DTAP/TDAP/TD VACCINES (1 - Tdap) 2000 HEPATITIS B VACCINE (1 of 3 - 19+ 3-dose series) 2000 HPV VACCINE (1 - 3-dose SCDM series) 2008 SCREENING FOR DIABETES 02/24/2025 COVID-19 VACCINE (2 - 2024-2 6 season) 2025 06/05/2022 INFLUENZA VACCINE (#1) 2025 07/27/2020 ZOSTER VACCINE (1 of 2) 2031 DEPRESSION SCREENING Completed 07/07/2025 HIB VACCINE Aged Out No longer eligi ble based on patient's age to complete this topic MENINGOCOCCAL (Group B) VACC INE SHARED DECISION-MAKING Aged Out No longer eligibl e based on patient's age to complete this topic MENINGOCOCCAL GROUPS A/C/Y/W VACCINE Aged Out No longer eligible b ased on patient's age to complete this topic PNEUMOCOCCAL VACCINE Aged Out No long er eligible based on patient's age to complete this topic Insurance Care Teams Syrup Mixer Assistant Relationship Specialty Start Date End Date Ronn Ariza MD [address] [place] [address] PCP - General 01/19/19
[2025-09-13 13:58] LABS: Strep Group A RT-PCR NOT DETECTED (Negative)
[2025-09-13 19:02] LABS: Influenza A QL RT-PCR Negative (Negative); Influenza B QL RT-PCR Negative (Negative); SARS-CoV-2 RNA PCR Negative (Negative)
== END 2025-09-13 13:24 | disposition home or self-care (01) ==
PROVIDERS: PCP Internal Medicine; Visit Provider Nurse Practitioner Family
DX: R05.9 Cough, unspecified (principal); R09.81 Nasal congestion
CPT/HCPCS: 87636; 87637; 87651